=== PATIENT | female | born 1970 | race Caucasian/White ===

== ENCOUNTER 2017-02-06 09:16 | Emergency (ER) | payer SELFPAY ==
[2017-02-06 12:08] LABS: ABSOLUTE EOSINOPHILS # (AUTO) 0.1 10^3/uL (0.0-0.6); ABSOLUTE MONOCYTES (AUTO) 0.9 10^3/uL (0.1-1.4); ABSOLUTE NEUT (AUTO) 2.9 10^3/uL (1.7-8.2); BASOPHILS % (AUTO) 0.9 % (0-2); EOSINOPHILS % (AUTO) 2.7 % (0-6); HEMATOCRIT 38.5 % (36.0-47.0); HEMOGLOBIN 13.1 g/dL (12.0-15.5); HGB HCT DIFFERENCE 0.8; MEAN CORPUSCULAR HEMOGLOBIN 28.1 pg (27.0-33.4); MEAN CORPUSCULAR VOLUME 83 fl (80-97); MONOCYTES % (AUTO) 18.5 % (3-13); RED BLOOD COUNT 4.66 10^6/uL (3.72-5.28); RED CELL DISTRIBUTION WIDTH 14.1 % (11.5-14.0); SEGMENTED NEUTROPHILS % (AUTO) 57.9 % (42-78); WHITE BLOOD COUNT 4.9 10^3/uL (4.0-10.5)
[2017-02-06 12:16] LABS: APPEARANCE,URINE SLIGHTLY-CLOUDY; BILIRUBIN,URINE NEGATIVE (NEGATIVE); GLUCOSE, URINE NEGATIVE (NEGATIVE); KETONES,URINE NEGATIVE (NEGATIVE); LEUKOCYTE ESTERASE,URINE NEGATIVE (NEGATIVE); NITRITE,URINE NEGATIVE (NEGATIVE); PROTEIN,URINE NEGATIVE (NEGATIVE); URINE SPECIFIC GRAVITY 1.018; UROBILINOGEN,URINE NEGATIVE mg/dL (<2.0)
[2017-02-06 12:17] LABS: PROTHROMBIN TIME 13.7 SEC (11.4-15.4)
[2017-02-06 12:31] LABS: ALANINE AMINOTRANSFERASE 37 U/L (9-52); ALKALINE PHOSPHATASE 54 U/L (38-126); ANION GAP 13 (5-19); ASPARTATE AMINO TRANSFERASE 30 U/L (14-36); BILIRUBIN,DIRECT 0.3 mg/dL (0.0-0.4); BILIRUBIN,TOTAL 0.5 mg/dL (0.2-1.3); BLOOD UREA NITROGEN 11 mg/dL (7-20); CALCIUM 9.3 mg/dL (8.4-10.2); CARBON DIOXIDE 26 mmol/L (22-30); CHLORIDE 104 mmol/L (98-107); CREATINE KINASE 89 U/L (30-135); CREATININE RESULT 0.68 mg/dL (0.52-1.25); GLUCOSE 87 mg/dL (75-110)
[2017-02-06 12:43] LABS: CREATINE KINASE MB 0.55 ng/mL (<4.55); TROPONIN I < 0.012 ng/mL
[2017-02-06] MEDS ORDERED: AMLODIPINE BESYLATE 10 MG TABLET PO ONE (13:16)
--- NOTE | 2017-02-06 13:16 | ER Document Report ---
ED General - General Chief Complaint: Blood Pressure Problem Stated Complaint: BLOOD PRESSURE PROBLEM Time seen by provider: 13:14 Mode of Arrival: Ambulatory Information source: Patient Notes: The patient is a 46-year-old female who presents to the emergency room with cough, congestion, sinus fullness. Patient states when she feels sick, her blood pressure does elevate. She also reports that she ran out of her Norvasc. Patient denies chest pain, shortness of breath, focal weakness. TRAVEL OUTSIDE OF THE [place] IN LAST 30 DAYS: No - HPI Onset: Last week Onset/Duration: Gradual Quality of pain: Dull Severity: Mild Pain Level: Denies Associated symptoms: Chills, Nonproductive cough, Fever, Sinus pain/drainage, Other. denies: Shortness of breath Exacerbated by: Denies Relieved by: Denies - Left ear pain Similar symptoms previously: Yes Recently seen / treated by doctor: No - Related Data Allergies/Adverse Reactions: morphine [Morphine] Allergy (Intermediate, Verified 02/06/17 09:28) Dyspnea Home Medications: Current Home Medications Amlodipine Besylate [Norvasc 10 mg Tablet] 20 mg PO DAILY 02/06/17 [History] Past Medical History - General Information source: Patient - Social History Smoking Status: Never Smoker Cigarette use (# per day): No Chew tobacco use (# tins/day): No Frequency of alcohol use: None Drug Abuse: None Lives with: Family Family History: Reviewed & Not Pertinent, DM, Hypertension Patient has suicidal ideation: No Patient has homicidal ideation: No - Past Medical History Cardiac Medical History: Reports: Hx Hypertension Renal/ Medical History: Reports: Hx Peritoneal Dialysis Past Surgical History: Reports: Hx Section, Hx Cholecystectomy, Hx Tubal Ligation - Immunizations Hx Diphtheria, Pertussis, Tetanus Vaccination: Yes Review of Systems - Review of Systems Notes: Review of systems: Constitutional: Positive for chills and subjective fevers. EENT: Positive for right ear fullness and sinus congestion. Denies throat pain , throat swelling. Cardiovascular: Denies chest pain, palpitations, dyspnea or edema. Respiratory: Positive for cough. Denies wheezing, hemoptysis. Abdomen: Denies abdominal pain, nausea, vomiting, diarrhea. Denies BRBPR or melena. Genitourinary: Denies dysuria, pyuria, hematuria, flank pain. Musculoskeletal: denies joint pain or swelling, denies back pain. Neurologic: Denies headache, photophobia, neck stiffness, weakness. Denies loss of bowel or bladder function. Denies saddle anesthesia. Skin: Denies rash, lesions. Constitutional: Chills, Fever EENT: Sinus pressure, Sinus discharge Cardiovascular: No symptoms reported Respiratory: See HPI Gastrointestinal: No symptoms reported Genitourinary: No symptoms reported Female Genitourinary: No symptoms reported Musculoskeletal: No symptoms reported Skin: No symptoms reported Hematologic/Lymphatic: No symptoms reported Neurological/Psychological: No symptoms reported Physical Exam - Vital signs Vitals: Temp Pulse Resp BP Pulse Ox 98.9 F 57 L 18 160/114 H 98 02/06/17 09:24 02/06/17 09:24 02/06/17 09:24 02/06/17 09:24 02/06/17 09:24 Notes: Physical exam: GENERAL: 46-year-old female, alert and oriented 3, no acute distress. HEAD: Atraumatic, normocephalic. EYES: Pupils equal round and reactive to light, extraocular movements intact, sclera anicteric, conjunctiva are normal. ENT: TMs normal, nares patent, oropharynx clear without exudates. Moist mucous membranes. NECK: Normal range of motion, supple without lymphadenopathy or JVD. LUNGS: Breath sounds clear to auscultation bilaterally and equal. No wheezes rales or rhonchi. HEART: Regular rate and rhythm without murmurs, rubs or gallops. ABDOMEN: Soft, normoactive bowel sounds. No tenderness to palpation. No guarding, no rebound. No masses appreciated. EXTREMITIES: Normal range of motion, no pitting or edema. No clubbing or cyanosis. NEUROLOGICAL: Cranial nerves II through XII grossly intact. Normal speech, normal gait. PSYCH: Normal mood, normal affect. SKIN: Warm, Dry, normal turgor, no rashes or lesions noted. Course - Re-evaluation Re-evalutation: 02/06/17 13:16 Blood pressure without any intervention: 165/85 - Vital Signs Vital signs: Temp Pulse Resp BP Pulse Ox 100.1 F 57 L 20 188/99 H 96 02/06/17 16:01 02/06/17 09:24 02/06/17 16:01 02/06/17 16:01 02/06/17 16:01 - Laboratory Result Diagrams: 02/06/17 11:52 02/06/17 11:52 Laboratory results interpreted by me: 02/06/17 02/06/17 11:52 11:52 RDW 14.1 H Monocytes % 18.5 H Urine Blood SMALL H - Diagnostic Test Radiology reviewed: Image reviewed, Reports reviewed - Chest x-ray shows no infiltrates - EKG Interpretation by Me Rate: Normal Rhythm: NSR - EKG shows normal sinus rhythm with a ventricular rate of 54, no acute ST-T wave changes Discharge - Discharge Clinical Impression: bronchitis, hypertension Condition: Stable Disposition: HOME, SELF-CARE Instructions: Bronchitis ([facility]), High Blood Pressure ([facility]) Additional Instructions: Recommendations: Start the antibiotics tomorrow, you were given today's dose in the ER. Start the Norvasc tomorrow, you were given today's dose in the ER. Up with your primary care doctor in the next few days Return to the emergency room for any concerns he getting worse. Prescriptions: Amlodipine Besylate [Norvasc 10 mg Tablet] 10 mg PO DAILY #30 tablet Azithromycin [Zithromax 250 mg Tablet] 250 mg PO ASDIR PRN #6 tablet PRN Reason: Forms: Return to Work Referrals: OFELIA LUNDBERG NP [Primary Care Provider] - Follow up in 3-5 days
--- NOTE | 2017-02-06 13:37 | EKG REPORT ---
SEVERITY:- BORDERLINE ECG - SINUS RHYTHM LVH BY VOLTAGE : Confirmed by: Sunil Truong MD 06-Feb-2017 13:36:23
[2017-02-06] MEDS ORDERED: AZITHROMYCIN 250 MG TABLET PO ONE (16:07)
[2017-02-06 16:26] VITALS: BP 188/99
== END 2017-02-06 16:34 | disposition home or self-care (01) ==
LOC: ER 09:16
DX: J40 Bronchitis, not specified as acute or chronic (principal); I10 Essential (primary) hypertension; R05 Cough; R09.81 Nasal congestion; Z79.899 Other long term (current) drug therapy
CPT/HCPCS: 36415; 71020; 80053; 81001; 82550; 82553; 84484; 85025; 85610; 93005; 93010; 99284

== ENCOUNTER 2017-04-13 11:10 | Emergency (ER) | payer SELFPAY ==
[2017-04-13] MEDS ORDERED: CLONIDINE HCL 0.2 MG TABLET PO ONE (11:49)
--- NOTE | 2017-04-13 11:57 | ER Document Report ---
ED Medical Screen (RME) - General Chief Complaint: Headache Stated Complaint: HEADACHE Time Seen by Provider: 04/13/17 11:49 Notes: Patient says her blood pressure is very high today. She has a history of high blood pressure and is on metoprolol and lisinopril and is supposed to be on a couple of other medicines, but is out of them. She is nauseated she has a headache this morning. She gets this way when her blood pressures up. She has been under a lot of stress for the past few days. TRAVEL OUTSIDE OF THE [place] IN LAST 30 DAYS: No - Related Data Allergies/Adverse Reactions: morphine [Morphine] Allergy (Intermediate, Verified 04/13/17 11:36) Dyspnea Past Medical History - Past Medical History Cardiac Medical History: Reports: Hx Hypertension Renal/ Medical History: Denies: Hx Peritoneal Dialysis Past Surgical History: Reports: Hx Section, Hx Cholecystectomy, Hx Tubal Ligation - Immunizations Hx Diphtheria, Pertussis, Tetanus Vaccination: Yes Physical Exam - Vital signs Vitals: Temp Pulse Resp BP Pulse Ox 98.2 F 48 L 16 225/117 H 99 04/13/17 11:15 04/13/17 11:15 04/13/17 11:15 04/13/17 11:15 04/13/17 11:15 Course - Vital Signs Vital signs: Temp Pulse Resp BP Pulse Ox 98.2 F 48 L 16 225/117 H 99 04/13/17 11:15 04/13/17 11:15 04/13/17 11:15 04/13/17 11:15 04/13/17 11:15
[2017-04-13 12:55] LABS: ABSOLUTE BASOPHILS # (AUTO) 0.1 10^3/uL (0.0-0.2); ABSOLUTE EOSINOPHILS # (AUTO) 0.1 10^3/uL (0.0-0.6); ABSOLUTE LYMPHOCYTES (AUTO) 2.2 10^3/uL (0.5-4.7); ABSOLUTE MONOCYTES (AUTO) 0.4 10^3/uL (0.1-1.4); ABSOLUTE NEUT (AUTO) 4.1 10^3/uL (1.7-8.2); BASOPHILS % (AUTO) 0.9 % (0-2); EOSINOPHILS % (AUTO) 1.5 % (0-6); HEMATOCRIT 39.4 % (36.0-47.0); HEMOGLOBIN 13.2 g/dL (12.0-15.5); HGB HCT DIFFERENCE 0.2; MEAN CORPUSCULAR HEMOGLOBIN 27.7 pg (27.0-33.4); MEAN CORPUSCULAR HGB CONC 33.5 g/dL (32.0-36.0); MEAN CORPUSCULAR VOLUME 82 fl (80-97); MONOCYTES % (AUTO) 6.4 % (3-13); RED BLOOD COUNT 4.78 10^6/uL (3.72-5.28); RED CELL DISTRIBUTION WIDTH 13.4 % (11.5-14.0); SEGMENTED NEUTROPHILS % (AUTO) 59.2 % (42-78); WHITE BLOOD COUNT 6.9 10^3/uL (4.0-10.5)
[2017-04-13 12:57] LABS: APPEARANCE,URINE SLIGHTLY-CLOUDY; BILIRUBIN,URINE NEGATIVE (NEGATIVE); GLUCOSE, URINE NEGATIVE (NEGATIVE); KETONES,URINE NEGATIVE (NEGATIVE); LEUKOCYTE ESTERASE,URINE NEGATIVE (NEGATIVE); NITRITE,URINE NEGATIVE (NEGATIVE); PROTEIN,URINE 30 mg/dL (NEGATIVE); URINE SPECIFIC GRAVITY 1.024; UROBILINOGEN,URINE NEGATIVE mg/dL (<2.0)
[2017-04-13 13:11] LABS: ALANINE AMINOTRANSFERASE 30 U/L (9-52); ALKALINE PHOSPHATASE 53 U/L (38-126); ANION GAP 11 (5-19); ASPARTATE AMINO TRANSFERASE 20 U/L (14-36); BILIRUBIN,DIRECT 0.4 mg/dL (0.0-0.4); BILIRUBIN,TOTAL 0.7 mg/dL (0.2-1.3); BLOOD UREA NITROGEN 14 mg/dL (7-20); CALCIUM 9.9 mg/dL (8.4-10.2); CARBON DIOXIDE 26 mmol/L (22-30); CHLORIDE 104 mmol/L (98-107); CREATININE RESULT 0.74 mg/dL (0.52-1.25); GLUCOSE 90 mg/dL (75-110); POTASSIUM 3.9 mmol/L (3.6-5.0); SODIUM 141.1 mmol/L (137-145); TOTAL PROTEIN 7.9 g/dL (6.3-8.2)
[2017-04-13 13:36] LABS: CREATINE KINASE MB 0.61 ng/mL (<4.55); TROPONIN I < 0.012 ng/mL
[2017-04-13] MEDS ORDERED: HYDRALAZINE HCL INJ/PF 20 MG/1 ML SDV IV ONE (14:55)
[2017-04-13] MEDS ORDERED: PROCHLORPERAZINE EDISYLATE INJ 10 MG/2 ML VIAL IV ONE (14:55)
[2017-04-13] MEDS ORDERED: DIPHENHYDRAMINE HCL 50 MG/ML VIAL IV ONE (14:55)
--- NOTE | 2017-04-13 15:08 | ER Document Report ---
ED General - General TRAVEL OUTSIDE OF THE [place] IN LAST 30 DAYS: No <NAM MUNOZ - Last Filed: 04/13/17 15:31> <SHAHIDA OVERTON - Last Filed: 04/13/17 22:43> - General Chief Complaint: Headache Stated Complaint: HEADACHE Time Seen by Provider: 04/13/17 11:49 - HPI Notes: 46-year-old female with a history of malignant hypertension who presents the emergency department complaining of a severe frontal headache that started this morning. States that she always gets headaches like this when her blood pressure is elevated however today she had new features of twinkling kaleidoscope type lights in her eyes as well as smelling sulfur for the past several days. Headache is described as severe. Patient is out of her hydralazine and her spironolactone. Also out of her anxiety medication whose name she cannot remember but examination of the records reveals to be lorazepam. She has been out of all of these medications for at least a month. Admits mild nausea but denies any vomiting, numbness, tingling, weakness. Denies any other symptoms. Any head injury, denies taking any blood thinners. (SHAHIDA OVERTON) - Related Data Allergies/Adverse Reactions: morphine [Morphine] Allergy (Intermediate, Verified 04/13/17 11:36) Dyspnea Past Medical History - Social History Family History: Reviewed & Not Pertinent, DM, Hypertension - Past Medical History Cardiac Medical History: Reports: Hx Hypertension Renal/ Medical History: Denies: Hx Peritoneal Dialysis Past Surgical History: Reports: Hx Section, Hx Cholecystectomy, Hx Tubal Ligation - Immunizations Hx Diphtheria, Pertussis, Tetanus Vaccination: Yes <NAM MUNOZ - Last Filed: 04/13/17 15:31> - General Information source: Patient - Social History Smoking Status: Never Smoker Cigarette use (# per day): No Chew tobacco use (# tins/day): No Frequency of alcohol use: None Drug Abuse: None Family History: DM, Hypertension <SHAHIDA OVERTON - Last Filed: 04/13/17 22:43> Review of Systems - Review of Systems Constitutional: No symptoms reported EENT: See HPI Cardiovascular: See HPI - Hypertension Neurological/Psychological: See HPI - headache, flashing lights, Headaches -: Yes All other systems reviewed and negative <SHAHIDA OVERTON - Last Filed: 04/13/17 22:43> Physical Exam <NAM MUNOZ - Last Filed: 04/13/17 15:31> - Vital signs Interpretation: Hypertensive, Bradycardic <SHAHIDA OVERTON - Last Filed: 04/13/17 22:43> - Vital signs Vitals: Temp Pulse Resp BP Pulse Ox 98.2 F 48 L 16 225/117 H 99 04/13/17 11:15 04/13/17 11:15 04/13/17 11:15 04/13/17 11:15 04/13/17 11:15 - Notes Notes: GENERAL: Alert, interacts well. No acute distress. HEAD: Normocephalic, atraumatic EYES: Pupils equal, round and reactive to light, extraocular movements intact. ENT: Oral mucosa moist, tongue midline. NECK: Full range of motion, supple, trachea midline. LUNGS: Clear to auscultation bilaterally, no wheezes, rales or rhonchi, no respiratory distress. HEART: Regular rate and rhythm, no murmurs, gallops, rubs. ABDOMEN: Soft, nontender, nondistended, bowel sounds present in all 4 quadrants. EXTREMITIES: Moves all 4 extremities spontaneously, no edema, radial and dorsalis pedis pulses 2/4 bilaterally. No cyanosis. NEUROLOGICAL: Alert and oriented x3, normal speech, facial droop, biceps and patellar DTRs 2+ bilaterally. PSYCH: Normal mood, normal affect. SKIN: Warm, Dry, normal turgor, no rashes or lesions noted. (SHAHIDA OVERTON) Course - Laboratory Result Diagrams: 04/13/17 12:35 04/13/17 12:35 - Consults Dr. Hill Time consulted: 14:51 <NAM MUNOZ - Last Filed: 04/13/17 15:31> - Laboratory Result Diagrams: 04/13/17 12:35 04/13/17 12:35 <SHAHIDA OVERTON - Last Filed: 04/13/17 22:43> - Re-evaluation Re-evalutation: 04/13/17 17:24 CBC unremarkable, CMP unremarkable, urinalysis unremarkable, CT scan of the head shows no acute bleed, lumbar puncture was then performed under fluoroscopy which showed 1 WBC and 5 RBCs, 57 glucose and 32 of protein. This is not consistent with subarachnoid hemorrhage, it is clear and colorless, there is no xanthochromia. Patient does not have subarachnoid hemorrhage, patient will be treated for her hypertension, she has already had a reduction of 20%, patient will have her outpatient blood pressure medications represcribed with the exception of Ativan which she has been out of for greater than a month. Patient 's headache is improving even just with blood pressure reduction from the clonidine in triage. (SHAHIDA OVERTON) - Vital Signs Vital signs: Temp Pulse Resp BP Pulse Ox 97.4 F 49 L 13 179/89 H 98 04/13/17 17:38 04/13/17 17:38 04/13/17 17:38 04/13/17 17:38 04/13/17 17:38 - Laboratory Laboratory results interpreted by me: 04/13/17 12:35 Urine Protein 30 H - EKG Interpretation by Me Additional EKG results interpreted by me: 04/13/17 17:26 EKG shows sinus bradycardia at a rate of 49, slight left axis deviation, left ventricular hypertrophy, no ST segment elevations or depressions, there are T- wave inversions noted in V5, V6 and aVL per my interpretation. (SHAHIDA OVERTON) - Consults Dr. Hill Reason for consultation: 04/13/17 15:31 Consulted about possible need for X-Ray- guided LP. Dr. Hill agrees and states to put the order in if necessary. (NAM MUNOZ) Discharge <NAM MUNOZ - Last Filed: 04/13/17 15:31> <SHAHIDA OVERTON - Last Filed: 04/13/17 22:43> - Discharge Clinical Impression: Poorly-controlled hypertension Hypertension Qualifiers: Hypertension type: essential hypertension Qualified Code(s): I10 - Essential ( primary) hypertension Headache Qualifiers: Headache type: unspecified Headache chronicity pattern: acute headache Intractability: not intractable Qualified Code(s): R51 - Headache Obesity (BMI 30-39.9) Qualifiers: Obesity type: due to excess calories Obesity severity: non-morbid Qualified Code(s): E66.09 - Other obesity due to excess calories Condition: Stable Disposition: HOME, SELF-CARE Instructions: Post Lumbar Puncture ([facility]), High Blood Pressure, Requiring Treatment ([facility]) Prescriptions: Hydralazine HCl 25 mg PO DAILY #30 tablet Spironolactone [Aldactone 25 mg Tablet] 25 mg PO DAILY #30 tablet Referrals: MANUELA GALLARDO MD [ACTIVE STAFF] - Follow up in 1 week Scribe Attestation: 04/13/17 22:42 I personally performed the services described in the documentation, reviewed and edited the documentation which was dictated to the scribe in my presence, and it accurately records my words and actions. (SHAHIDA OVERTON) Scribe Documentation - Scribe Written by Nighat:: Nighat Muñiz, 04/13/2017 1507 acting as scribe for :: De <NAM MUNOZ - Last Filed: 04/13/17 15:31>
--- NOTE | 2017-04-13 15:18 | RADIOLOGY REPORT (SQ) ---
EXAM DESCRIPTION: CT HEAD WITHOUT COMPLETED DATE/TIME: 04/13/2017 3:09 pm REASON FOR STUDY: HTN SBP 225, r/o SAH COMPARISON: CT brain 03/14/2015, 10/19/2015 TECHNIQUE: Axial images acquired through the brain without intravenous contrast. Images reviewed wi th bone, brain and subdural windows. Images stored on PACS. All CT scanners at this facility use dose modulation, iterative reconstruction, and/or weight based d osing when appropriate to reduce radiation dose to as low as reasonably achievable (ALARA). [facility]: Dose Right [facility]: CareDose [facility]: Dose Right [facility]: Teradose 4D [facility]: [employer] RADIATION DOSE: mGy. LIMITATIONS: None. FINDINGS: VENTRICLES: Normal size and contour. CEREBRUM: No masses. No hemorrhage. No midline shift. Normal barraza/white matter differentiation. N o evidence for acute infarction. CEREBELLUM: No masses. No hemorrhage. No alteration of density. No evidence for acute infarction. EXTRAAXIAL SPACES: No fluid collections. No masses. ORBITS AND GLOBE: No intra- or extraconal masses. Normal contour of globe without masses. CALVARIUM: No fracture. PARANASAL SINUSES: No fluid or mucosal thickening. SOFT TISSUES: Benign-appearing chronic right parietal scalp calcification axial image 27 unchanged si nce 2014. OTHER: No other significant finding. IMPRESSION: NORMAL BRAIN CT WITHOUT CONTRAST. TECHNICAL DOCUMENTATION: JOB ID: [id number] Quality ID # [id number]: Final reports with documentation of one or more dose reduction techniques (e.g., Au tomated exposure control, adjustment of the mA and/or kV according to patient size, use of iterative reconstruction technique) 2010 [employer]- All Rights Reserved
--- NOTE | 2017-04-13 16:03 | RADIOLOGY REPORT (SQ) ---
EXAM DESCRIPTION: LUMBAR PUNCTURE COMPLETED DATE/TIME: 04/13/2017 3:49 pm REASON FOR STUDY: michi JAIME with SBP 225 mmhg COMPARISON: None. FLUOROSCOPY TIME: 0.3 minutes 2 digital images saved to PACS. TECHNIQUE: Fluoroscopic guided lumbar puncture. LIMITATIONS: None. PROCEDURE: After written consent and assessment were obtained, the patient was brought into the fluo roscopy room and placed prone on the table. The patient's lower back was prepped in a sterile fashio n and an entry site was selected under live fluoroscopic guidance. The entry site was anesthetized wi th 3 mL of 1% lidocaine. A 22 gauge spinal needle was advanced through the skin and into the thecal s ac at the right paracentral L3-4 level. After approximately 9 ml was drained, the needle was removed and a sterile bandage was placed of the site. Specimens were sent to the lab for testing. A fluoros copic spot image was saved to PACS confirming level access. FINDINGS: Clear cerebrospinal fluid, opening pressure 10 cm of water. Fluid sent for testing as per the emergency room attending physician IMPRESSION: Lumbar puncture under fluoroscopy. No immediate complication. COMMENT: Patient medication list reviewed: Yes- Quality ID# [id number]:Eligible professional attests to doc umenting in the medical record they obtained, updated, or reviewed the patient's current medications. . Quality ID 145: Final reports for procedures using fluoroscopy that document radiation exposure treva shruti, or exposure time and number of fluorographic images (if radiation exposure indices are not avail able) TECHNICAL DOCUMENTATION: JOB ID: [id number] [employer]- All Rights Reserved
--- NOTE | 2017-04-13 16:10 | RADIOLOGY REPORT (SQ) ---
EXAM DESCRIPTION: FLUORO/NEEDLE PLACEMENT COMPLETE DATE/TIME: 04/13/2017 3:49 pm REASON FOR STUDY: newonset JAIME with SBP 225 mmhg FINDINGS: Please see combined report for performance of procedure and radiologic supervision and int erpretation. IMPRESSION: Please see combined report for performance of procedure and radiologic supervision and i nterpretation.
[2017-04-13 16:36] LABS: GLUCOSE,CSF 57 mg/dL (40-70)
[2017-04-13] MEDS ORDERED: HYDRALAZINE HCL 50 MG TABLET PO ONE (16:42)
[2017-04-13] MEDS ORDERED: METOCLOPRAMIDE HCL INJ/PF 10 MG/2 ML SDV IM ONE (16:42)
[2017-04-13] MEDS ORDERED: DIPHENHYDRAMINE HCL 50 MG/ML VIAL IM ONE (16:42)
[2017-04-13 16:53] LABS: APPEARANCE ALL TUBES CLEAR
[2017-04-13 16:54] LABS: RBC AVERAGE 4.5; RBC DILUENT USED NONE USED; RBC DILUTION FACTOR 1; RBC SIDE 1 4; RBC SIDE 2 5; TOTAL RBC SQUARES COUNTED 225; WHITE BLOOD CELL,CSF 1 /uL (0-5)
[2017-04-13 16:55] LABS: APPEARANCE ALL TUBES CLEAR; RBC DILUENT USED NONE USED; RBC DILUTION FACTOR 1; RBC SIDE 1 1; RBC SIDE 2 1; TOTAL RBC SQUARES COUNTED 225
[2017-04-13 16:56] LABS: WHITE BLOOD CELL,CSF 0 /uL (0-5)
[2017-04-13 17:43] VITALS: BP 179/89
--- NOTE | 2017-04-13 18:29 | EKG REPORT ---
SEVERITY:- ABNORMAL ECG - SINUS BRADYCARDIA LEFT VENTRICULAR HYPERTROPHY : Confirmed by: Sunil Truong MD 13-Apr-2017 18:28:36
== END 2017-04-13 17:52 | disposition home or self-care (01) ==
LOC: ER 11:10
PROC: 009U3ZX Drainage of Spinal Canal, Percutaneous Approach, Diagnostic (ICD-10-PCS; principal; 2017-04-13)
DX: I10 Essential (primary) hypertension (principal); T46.5X6A Underdosing of other antihypertensive drugs, initial encounter; T50.0X6A Underdosing of mineralocorticoids and their antagonists, initial encounter; F41.9 Anxiety disorder, unspecified; T42.4X6A Underdosing of benzodiazepines, initial encounter; H53.8 Other visual disturbances; R51 Headache; R29.810 Facial weakness; R43.8 Other disturbances of smell and taste; R11.0 Nausea; R00.1 Bradycardia, unspecified; I51.7 Cardiomegaly; E66.9 Obesity, unspecified; Z68.39 Body mass index [BMI] 39.0-39.9, adult; Z88.5 Allergy status to narcotic agent
CPT/HCPCS: 93005; 99284; 96372; 36415; 87070; 87205; 82553; 85025; 89050; 82945; 84157; 80053; 81001; 84484; 77002; 62270 ×2; 70450; 93010; J1200; J2765

== ENCOUNTER 2017-04-20 15:57 | Observation (INO) | payer SELFPAY ==
[2017-04-20] MEDS ORDERED: OXYCODONE-ACETAMINOPHEN 5-325 MG TABLET PO ONE (17:41)
[2017-04-20] MEDS ORDERED: AMLODIPINE BESYLATE 10 MG TABLET PO ONE (17:43)
--- NOTE | 2017-04-20 17:46 | ER Document Report ---
ED Blood Pressure Problem - General Chief Complaint: High Blood Pressure Stated Complaint: BLOOD PRESSURE ISSUES Time Seen by Provider: 04/20/17 17:33 Mode of Arrival: Ambulatory Information source: Patient Notes: This is a 46-year-old female with poorly controlled blood pressure presents to the emergency room with headache in the setting of elevated blood pressure. Patient states her blood pressure was 248/131. She states she has had a headache all day. She denies any fever, chills, nausea or vomiting. She denies any focal motor weakness. TRAVEL OUTSIDE OF THE [place] IN LAST 30 DAYS: No - HPI Patient complains to provider of: High blood pressure Onset: Last week Onset/Duration: Gradual Quality of pain: Dull Severity: Moderate Pain Level: 3 Problem is: Chronic problem Pt currently taking medication for problem: Yes Associated symptoms: Headache, Nausea Similar symptoms previously: Yes Recently seen / treated by doctor: Yes - Related Data Allergies/Adverse Reactions: morphine [Morphine] Allergy (Intermediate, Verified 04/20/17 16:18) Dyspnea Past Medical History - General Information source: Patient - Social History Smoking Status: Never Smoker Chew tobacco use (# tins/day): No Frequency of alcohol use: None Drug Abuse: None Lives with: Spouse/Significant other Family History: DM, Hypertension Patient has suicidal ideation: No Patient has homicidal ideation: No - Past Medical History Cardiac Medical History: Reports: Hx Hypertension Renal/ Medical History: Denies: Hx Peritoneal Dialysis Past Surgical History: Reports: Hx Section, Hx Cholecystectomy, Hx Tubal Ligation - Immunizations Hx Diphtheria, Pertussis, Tetanus Vaccination: Yes Review of Systems - Review of Systems Constitutional: denies: Chills, Fever EENT: No symptoms reported Cardiovascular: See HPI. denies: Chest pain Respiratory: No symptoms reported Gastrointestinal: No symptoms reported Genitourinary: No symptoms reported Female Genitourinary: No symptoms reported Musculoskeletal: No symptoms reported Skin: No symptoms reported Hematologic/Lymphatic: No symptoms reported Neurological/Psychological: Anxiety, Headaches. denies: Confusion, Weakness, Seizure, Numbness, Tingling Physical Exam - Vital signs Vitals: Temp Pulse Resp BP Pulse Ox 98.3 F 51 L 18 220/118 H 100 04/20/17 16:18 04/20/17 16:18 04/20/17 16:18 04/20/17 16:18 04/20/17 16:18 Notes: Physical exam: GENERAL: 46-year-old female, alert and oriented 3, no acute distress. HEAD: Atraumatic, normocephalic. EYES: Pupils equal round and reactive to light, extraocular movements intact, sclera anicteric, conjunctiva are normal. ENT: TMs normal, nares patent, oropharynx clear without exudates. Moist mucous membranes. NECK: Normal range of motion, supple without lymphadenopathy or JVD. LUNGS: Breath sounds clear to auscultation bilaterally and equal. No wheezes rales or rhonchi. HEART: Regular rate and rhythm without murmurs, rubs or gallops. ABDOMEN: Soft, normoactive bowel sounds. No tenderness to palpation. No guarding, no rebound. No masses appreciated. EXTREMITIES: Normal range of motion, no pitting or edema. No clubbing or cyanosis. NEUROLOGICAL: Cranial nerves II through XII grossly intact. Normal speech, otherwise 5, sensory grossly intact, cerebellar (finger to nose) good. PSYCH: Normal mood, normal affect. SKIN: Warm, Dry, normal turgor, no rashes or lesions noted. Course - Vital Signs Vital signs: Temp Pulse Resp BP Pulse Ox 98.3 F 51 L 18 201/100 H 97 04/20/17 16:18 04/20/17 16:18 04/20/17 18:54 04/20/17 18:54 04/20/17 18:54 - Laboratory Result Diagrams: 04/20/17 16:45 04/20/17 16:45 Laboratory results interpreted by me: 04/20/17 16:45 Sodium 145.7 H - Diagnostic Test Radiology reviewed: Image reviewed, Reports reviewed - CT of the head shows no acute pathology. - EKG Interpretation by Me Rate: Bradycardia Rhythm: NSR - EKG shows sinus bradycardia with no acute ST-T wave elevation, ventricular rate 51. Critical Care Note - Critical Care Note Total time excluding time spent on procedures (mins): 55 Discharge - Discharge Clinical Impression: Hypertensive emergency, Headache Condition: Serious Disposition: ADMITTED INPATIENT Admitting Provider: Hospitalist - Dr Fuller Unit Admitted: [facility]
[2017-04-20 17:50] LABS: ABSOLUTE BASOPHILS # (AUTO) 0.1 10^3/uL (0.0-0.2); ABSOLUTE EOSINOPHILS # (AUTO) 0.1 10^3/uL (0.0-0.6); ABSOLUTE LYMPHOCYTES (AUTO) 2.8 10^3/uL (0.5-4.7); ABSOLUTE MONOCYTES (AUTO) 0.5 10^3/uL (0.1-1.4); ABSOLUTE NEUT (AUTO) 3.6 10^3/uL (1.7-8.2); BASOPHILS % (AUTO) 0.7 % (0-2); EOSINOPHILS % (AUTO) 1.8 % (0-6); HEMATOCRIT 41.2 % (36.0-47.0); HEMOGLOBIN 13.8 g/dL (12.0-15.5); HGB HCT DIFFERENCE 0.2; LYMPHOCYTES % (AUTO) 39.6 % (13-45); MEAN CORPUSCULAR HEMOGLOBIN 27.6 pg (27.0-33.4); MEAN CORPUSCULAR HGB CONC 33.4 g/dL (32.0-36.0); MEAN CORPUSCULAR VOLUME 83 fl (80-97); MONOCYTES % (AUTO) 6.8 % (3-13); RED BLOOD COUNT 4.98 10^6/uL (3.72-5.28); RED CELL DISTRIBUTION WIDTH 13.6 % (11.5-14.0); SEGMENTED NEUTROPHILS % (AUTO) 51.1 % (42-78); WHITE BLOOD COUNT 7.1 10^3/uL (4.0-10.5)
[2017-04-20 18:00] LABS: ALANINE AMINOTRANSFERASE 31 U/L (9-52); ALBUMIN 4.1 g/dL (3.5-5.0); ALKALINE PHOSPHATASE 59 U/L (38-126); ANION GAP 14 (5-19); ASPARTATE AMINO TRANSFERASE 21 U/L (14-36); BILIRUBIN,DIRECT 0.3 mg/dL (0.0-0.4); BILIRUBIN,TOTAL 0.4 mg/dL (0.2-1.3); BLOOD UREA NITROGEN 17 mg/dL (7-20); CALCIUM 10.1 mg/dL (8.4-10.2); CARBON DIOXIDE 26 mmol/L (22-30); CHLORIDE 106 mmol/L (98-107); CREATINE KINASE 105 U/L (30-135); CREATININE RESULT 0.77 mg/dL (0.52-1.25); GLUCOSE 93 mg/dL (75-110); POTASSIUM 3.9 mmol/L (3.6-5.0); SODIUM 145.7 mmol/L (137-145); TOTAL PROTEIN 8.2 g/dL (6.3-8.2)
[2017-04-20 18:12] LABS: CREATINE KINASE MB 0.92 ng/mL (<4.55); TROPONIN I < 0.012 ng/mL
--- NOTE | 2017-04-20 18:58 | RADIOLOGY REPORT (SQ) ---
EXAM DESCRIPTION: CT HEAD WITHOUT COMPLETED DATE/TIME: 04/20/2017 6:42 pm REASON FOR STUDY: uncontrolled bp COMPARISON: 04/13/2017 TECHNIQUE: Axial images acquired through the brain without intravenous contrast. Images reviewed wi th bone, brain and subdural windows. Images stored on PACS. All CT scanners at this facility use dose modulation, iterative reconstruction, and/or weight based d osing when appropriate to reduce radiation dose to as low as reasonably achievable (ALARA). [facility]: Dose Right [facility]: CareDose [facility]: Dose Right [facility]: Teradose 4D [facility]: [email or web address] RADIATION DOSE: 64.61 mGy. LIMITATIONS: None. FINDINGS: VENTRICLES: Normal size and contour. CEREBRUM: No masses. No hemorrhage. No midline shift. Normal barraza/white matter differentiation. N o evidence for acute infarction. CEREBELLUM: No masses. No hemorrhage. No alteration of density. No evidence for acute infarction. EXTRAAXIAL SPACES: No fluid collections. No masses. ORBITS AND GLOBE: No intra- or extraconal masses. Normal contour of globe without masses. CALVARIUM: No fracture. PARANASAL SINUSES: Small mucosal polyp or retention cyst is identified in the left maxillary antra. SOFT TISSUES: The previously described right parietal scalp calcification appears stable. OTHER: No other significant finding. IMPRESSION: NORMAL BRAIN CT WITHOUT CONTRAST. TECHNICAL DOCUMENTATION: JOB ID: [id number] Quality ID # [id number]: Final reports with documentation of one or more dose reduction techniques (e.g., Au tomated exposure control, adjustment of the mA and/or kV according to patient size, use of iterative reconstruction technique) 2010 [employer]- All Rights Reserved
--- NOTE | 2017-04-20 18:59 | RADIOLOGY REPORT (SQ) ---
EXAM DESCRIPTION: CHEST SINGLE VIEW COMPLETED DATE/TIME: 04/20/2017 6:44 pm REASON FOR STUDY: uncontrolled bp COMPARISON: 02/06/2017 EXAM PARAMETERS: NUMBER OF VIEWS: One view. TECHNIQUE: Single frontal radiographic view of the chest acquired. RADIATION DOSE: NA LIMITATIONS: None. FINDINGS: LUNGS AND PLEURA: No opacities, masses or pneumothorax. No pleural effusion. MEDIASTINUM AND HILAR STRUCTURES: No masses. Contour normal. HEART AND VASCULAR STRUCTURES: Heart normal in size. Normal vasculature. BONES: No acute findings. HARDWARE: None in the chest. OTHER: No other significant finding. IMPRESSION: NO ACUTE RADIOGRAPHIC FINDING IN THE CHEST. TECHNICAL DOCUMENTATION: JOB ID: [id number]
[2017-04-20] MEDS ORDERED: METOCLOPRAMIDE HCL INJ/PF 10 MG/2 ML SDV IV ONE (19:45)
[2017-04-20] MEDS ORDERED: DIPHENHYDRAMINE HCL 50 MG/ML VIAL IV ONE (19:49)
[2017-04-20] MEDS ORDERED: ALPRAZOLAM 0.5 MG TABLET PO ONE (20:01)
[2017-04-20] MEDS ORDERED: HYDRALAZINE HCL INJ/PF 20 MG/1 ML SDV IV PRN (21:53)
[2017-04-20] MEDS ORDERED: MAGNESIUM HYDROXIDE SUSP 30 ML UDCUP PO PRN (21:59)
--- NOTE | 2017-04-20 22:26 | PDOC H&P ---
History of Present Illness Admission Date/PCP: 04/20/17 20:31 PCP None Patient complains of: headache, elev bp History of Present Illness: RACHEL SCHOFIELD is a 46 year old female with chronic headaches and chronic poorly controlled hypertension, who presents to the emergency room for evaluation of above complaints. Patient has been discussed with emergency room physician who evaluated the patient. Describes a recurrence of her usual chronic headaches earlier today. States this is usually the case when her blood pressure is higher than it should be. Describes nausea but no vomiting. No chest or abdominal pain, fever or chills. Denies any lateralizing motor weakness. Was seen in the emergency room the last for complaints of severe frontal headache. At that time, she had run out of both her Spironolactone and hydralazine, but was still taking her metoprolol and lisinopril. given prescriptions for the 2 remaining antihypertensives, and states she has since been taking her medications as prescribed. Denies use of alcohol tobacco or illicit drugs. Currently resting quietly, stating her headache is a bit better. Hospitalized on our service the through 25 June of last year with discharge diagnoses including malignant hypertension and migraines. At that time, was not completely compliant with all her medications, but states that is no longer the case. Discharge summary has been reviewed. Laboratory results are listed in [employer] and are reviewed. X-ray summary results are listed below, with full report(s) reviewed. . EKG reviewed and compared to a prior tracing from the last . Social history/personal habits: . Has children. cook at a local restaurant. Personal habits as noted above. Allergies/adverse reactions are listed in [employer] and are reviewed. No problems with Percocet or Vicodin. Home medications initially autopopulated into [employer] may not accurately reflect patient's true medications, dosages, and/or frequencies. radiographer technologist has reconciled medications; medication bottle review also performed. Unfortunately, patient not certain of all medications/dosages/frequencies. REVIEW OF SYSTEMS: Constitutional: No fever or chills. Eyes: Wears glasses ENT: No swallowing problems or complaints. Denies hearing loss. Pulmonary: No current complaints. Cardiovascular: No current complaints, including chest pain. Gastrointestinal: See history and present illness. Skin: No current complaints, including rashes. Hematologic: Easy bruising. Neurologic: See history and present illness. Musculoskeletal: Mild occasional joint pains, without a specific diagnosis of arthritis Psychiatric: Mild occasional anxiety. Endocrine: No current complaints, including polyuria. Genitourinary: No current complaints, including dysuria. PHYSICAL EXAMINATION: 5 feet 1 inches tall. 92.9 kg. BMI 38.7 kg/m. Temperature 98.3. Manual blood pressure 232/116 on the left; 214/112 on the right. Pulse 54 and regular. 98% saturation on room air. Respirations are 21 and unlabored. Obese otherwise well-developed female appearing approximately her stated age. Pleasant awake alert and cooperative. No obvious distress other than somewhat anxious. No agitation. is present at her side; patient approves. Female emergency room nurse Kathe is present. Skin is warm and dry. No grossly obvious evidence of rash in areas of skin examined. No subcutaneous nodules palpated. ENT: Hearing grossly normal to normal conversation. Tongue midline on protrusion pink and slightly moist. Eyes: No scleral icterus. Pupils equal and reactive to light at 4 mm. [place] conjunctivae. Neck is supple and nontender to gentle active range of motion and palpation. Midline trachea. No palpable thyroid nodule mass enlargement or tenderness. Lymphatic: No palpable cervical or clavicular nodes. Neck and lymphatic exams limited by patient body habitus. Psychiatric: Reasonable insight into acute and chronic medical issues. Oriented to time location and why here. Lungs: Auscultation reveals clear and equal breath sounds bilaterally. No use of accessory respiratory muscles. Cardiovascular: Heart regular rate and rhythm, without gallop murmur or rub. No carotid or abdominal aortic bruits. No ankle or pedal edema. Faintly palpable dorsalis pedis pulses. Abdomen:soft somewhat obese nontender with positive bowel sounds. Unable to adequately evaluate abdomen for masses or organomegaly due to body habitus. Extremities: Feet are warm and dry. No calf tenderness to compression. No grossly obvious visual evidence of calf swelling. Gentle manipulation of lower extremities fails to reveal any obvious evidence of injury or instability to knees hips or ankles. Neurologic: Moves all 4 extremities grossly normally. Patellar reflexes absent. Absent Babinski. Light touch is intact at feet. Dorsiflexion and plantarflexion of feet 5 / 5 and symmetric. Past Medical History Cardiac Medical History: Reports: Hypertension Denies: Congestive Heart Failure, DVT, Myocardial Infarction, Hyperlipidema, Pulmonary Embolism Pulmonary Medical History: Denies: Asthma, Chronic Obstructive Pulmonary Disease (COPD), Sleep Apnea EENT Medical History: Reports: Eyes - Glasses, Other - Occasional problems with dental infections. Denies: Ears, Throat Neurological Medical History: Reports: Migraine Denies: Hemorrhagic CVA, Ischemic CVA, Seizures Endocrine Medical History: Denies: Diabetes Mellitus Type 1, Diabetes Mellitus Type 2, Hyperthyroidism, Hypothyroidism Renal/ Medical History: Reports: None GI Medical History: Reports: Other - Chronic constipation Denies: Cirrhosis, Gastroesophageal Reflux Disease, Hepatitis, Peptic Ulcer Disease Musculoskeltal Medical History: Reports: Other - Occasional mild joint pains, without formal diagnosis of arthritis. Skin Medical History: Reports: Other - Occasional problems with rosacea. Psychiatric Medical History: Reports: General Anxiety Disorder Denies: Alcohol Dependency, Depression, Substance Abuse, Tobacco Dependency Hematology: Reports: Other - Easy bruising Infectious Medical History: Denies: Clostridium Difficile, Hepatitis B, Hepatitis C, Methicillin- Resistant Staph Aureus Past Surgical History Past Surgical History: Reports: Section, Cholecystectomy, Tubal Ligation Social History Information Source: Patient, Emergency Med Personnel, [facility] Records Lives with: Spouse/Significant other Smoking Status: Never Smoker Frequency of Alcohol Use: None Hx Recreational Drug Use: No Drugs: None Hx Prescription Drug Abuse: No - Advance Directive Resuscitation Status: Full Code Surrogate healthcare decision maker:: Family History Family History: DM, Hypertension Parental Family History Reviewed: Yes - Parents are hypertensive. Children Family History Reviewed: Yes - Daughter with Crohn's disease. Sibling(s) Family History Reviewed.: Yes - Healthy Medication/Allergy Home Medications: Ibuprofen [Motrin 400 mg Tablet] 400 mg PO Q12HP PRN 04/21/17 Amoxicillin 1 tab PO TID #30 tab 04/22/17 Butalb/Acetaminophen/Caffeine [Fioricet (50-325-40 mg) Tablet] 1 tab PO Q4HP PRN #30 tab 04/22/17 Hydralazine HCl [Apresoline 25 mg Tablet] 25 mg PO DAILY #30 tablet 04/22/17 Lisinopril [Zestril] 40 mg PO DAILY #30 tablet 04/22/17 Spironolactone [Aldactone 25 mg Tablet] 25 mg PO DAILY #30 tablet 04/22/17 Topiramate [Topamax 25 mg Tablet] 25 mg PO QHS #30 tablet 04/22/17 Verapamil HCl [Calan 80 mg Tablet] 80 mg PO Q8 #90 tablet 04/22/17 Allergies/Adverse Reactions: morphine [Morphine] Allergy (Intermediate, Verified 04/20/17 22:08) Dyspnea Physical Exam Vital Signs: Temp Pulse Resp BP Pulse Ox 98.3 F 51 L 14 232/116 H 97 04/20/17 16:18 04/20/17 16:18 04/20/17 21:02 04/20/17 21:30 04/20/17 21:02 Results Impressions: Chest X-Ray 04/20/17 17:41 IMPRESSION: NO ACUTE RADIOGRAPHIC FINDING IN THE CHEST. Head CT 04/20/17 17:43 IMPRESSION: NORMAL BRAIN CT WITHOUT CONTRAST. Assessment & Plan - Diagnosis (1) Hypernatremia Is this a current diagnosis for this admission?: Yes (2) Hypertensive urgency Is this a current diagnosis for this admission?: YesPlan: Gradual blood pressure control with as needed hydralazine. We will also continue her current home medications. Vital sign parameters entered into chart. I have strongly encouraged patient to be careful getting out of bed, to avoid a fall with injury. Knee high SCDs for DVT prophylaxis; with patient's young age, and the fact that she will likely be discharged tomorrow, will forego Lovenox or heparin at this time. Impression and plans were discussed with patient and , both of whom concur. Time spent in evaluation and management of patient: 62 minutes. (3) Headache Qualifiers: Headache type: unspecified Headache chronicity pattern: acute headache Intractability: not intractable Qualified Code(s): R51 - Headache Is this a current diagnosis for this admission?: YesPlan: As needed pain medication. (4) DVT prophylaxis Is this a current diagnosis for this admission?: Yes (5) Obesity (BMI 30-39.9) Qualifiers: Obesity type: unspecified obesity type Obesity severity: non-morbid Qualified Code(s): E66.9 - Obesity, unspecified Is this a current diagnosis for this admission?: YesPlan: Dietary consult.
[2017-04-20 22:29] LABS: APPEARANCE,URINE SLIGHTLY-CLOUDY; BILIRUBIN,URINE NEGATIVE (NEGATIVE); GLUCOSE, URINE NEGATIVE (NEGATIVE); KETONES,URINE NEGATIVE (NEGATIVE); LEUKOCYTE ESTERASE,URINE NEGATIVE (NEGATIVE); NITRITE,URINE NEGATIVE (NEGATIVE); PROTEIN,URINE NEGATIVE (NEGATIVE); URINE SPECIFIC GRAVITY 1.015; UROBILINOGEN,URINE NEGATIVE mg/dL (<2.0)
[2017-04-20 22:42] LABS: URINE BARBITURATES SCREEN NEGATIVE; URINE METHADONE SCREEN NEGATIVE; URINE OPIATES LOW NEGATIVE; URINE PHENCYCLIDINE SCREEN NEGATIVE
[2017-04-20 22:44] LABS: ADD ON TESTING BLD IN LAB ACKNOWLEDGE
[2017-04-20 22:57] LABS: MAGNESIUM 1.9 mg/dL (1.6-2.3)
[2017-04-21] MEDS: ACETAMINOPHEN 325 MG TABLET PO PRN ×3 (00:20→12:05)
[2017-04-21] MEDS: OXYCODONE HCL IR 5 MG TABLET PO PRN ×2 (05:08→13:32)
--- NOTE | 2017-04-21 08:48 | EKG REPORT ---
SEVERITY:- ABNORMAL ECG - SINUS RHYTHM PROBABLE LEFT VENTRICULAR HYPERTROPHY : Confirmed by: Ousmane Carranza 21-Apr-2017 08:47:28
[2017-04-21] MEDS: SPIRONOLACTONE 25 MG TABLET PO SCH (09:03)
[2017-04-21] MEDS: LISINOPRIL 10 MG TABLET PO SCH (09:04)
[2017-04-21] MEDS: DOCUSATE SODIUM 100 MG CAPSULE PO SCH ×2 (09:04→17:52)
[2017-04-21] MEDS: HYDRALAZINE HCL 25 MG TABLET PO SCH (09:05)
[2017-04-21] MEDS ORDERED: METOPROLOL TARTRATE 100 MG TABLET PO SCH (10:00)
[2017-04-21] MEDS: VERAPAMIL HCL 80 MG TABLET PO SCH ×2 (13:32→21:23)
--- NOTE | 2017-04-21 13:42 | RADIOLOGY REPORT (SQ) ---
EXAM DESCRIPTION: MRI HEAD COMBO COMPLETED DATE/TIME: 04/21/2017 1:13 pm REASON FOR STUDY: HEADACHE WITH PARESTHESIAS; EVAL FOR MASS COMPARISON: None. TECHNIQUE: Multiplanar imaging includes noncontrasted T1, T2, FLAIR, and Diffusion with ADC map seq uences. Contrast enhanced T1 images. Images stored on PACS. CONTRAST TYPE AND DOSE: 15 mL Multihance. RENAL FUNCTION: GFR > 60. LIMITATIONS: None. FINDINGS: ANATOMY: No anomalies. Normal vascular flow voids. Pituitary fossa normal. CSF SPACES: Normal size and contour. No hemorrhage. CEREBRUM: A few high-signal intensity lesions scattered throughout the white matter on FLAIR imaging with distribution suggesting chronic microvascular ischemic change. Sulci and gyri normal in size and contour. No evidence of hemorrhage, mass or extraaxial fluid collection. No enhancing lesions. POSTERIOR FOSSA: No signal alteration. No hemorrhage. No edema, masses or mass effect. Internal audit ory canals, cerebello-pontine angles, mastoids normal. DIFFUSION: Negative for acute or subacute infarction. ORBITS: No masses. Globes normal. PARANASAL SINUSES: Polyp or retention cyst left maxillary sinus. OTHER: No other significant finding. IMPRESSION: No acute abnormality in the brain. TECHNICAL DOCUMENTATION: JOB ID: [id number] [employer]- All Rights Reserved
[2017-04-21] MEDS ORDERED: PROMETHAZINE HCL INJ 25 MG/1 ML VIAL IV PRN (14:08)
--- NOTE | 2017-04-21 14:20 | PDOC PROGRESS REPORT ---
Subjective Progress Note for:: 04/21/17 Subjective:: reason for visit: acc HTN, JAIME hospital course: per other's notes - "RACHEL SCHOFIELD is a 46 year old female with chronic headaches and chronic poorly controlled hypertension, who presents to the emergency room for evaluation of above complaints. Patient has been discussed with emergency room physician who evaluated the patient. Describes a recurrence of her usual chronic headaches earlier today. States this is usually the case when her blood pressure is higher than it should be. Describes nausea but no vomiting. No chest or abdominal pain, fever or chills. Denies any lateralizing motor weakness. Was seen in the emergency room the of last month for complaints of severe frontal headache. At that time, she had run out of both her Spironolactone and hydralazine, but was still taking her metoprolol and lisinopril. He was given prescriptions for the 2 remaining antihypertensives, and states she has been taking her medications as prescribed. Denies use of alcohol tobacco or illicit drugs. Currently resting quietly, stating her headache is a bit better. Hospitalized on our service the through 25 June of last year discharge diagnoses including malignant hypertension and migraines. At that time, was not completely compliant with all her medications, but states that is no longer the case." I inherited her care Monday morning and she is still c/o intense frontal JAIME described as dull, constant aching pressure across her forehead and radiating into Rt Occiput with associated blurred vision but no paresthesias, n/v, slurred speech, difficulty concentrating, N/T, worse with bright lights and sounds, alleviated only with ibuprofen. ROS: as above, total 10 systems reviewed remaining systems negative Physical Exam Vital Signs: Temp Pulse Resp BP Pulse Ox 97.7 F 51 L 20 177/97 H 98 04/21/17 11:19 04/21/17 11:19 04/21/17 11:19 04/21/17 11:19 04/21/17 11:19 Intake & Output 04/20/17 04/21/17 04/22/17 06:59 06:59 06:59 Intake Total 1137 Output Total 400 Balance -400 1137 Weight 98 kg General appearance: PRESENT: mild distress, obese, well-developed, well- nourished Head exam: PRESENT: atraumatic, normocephalic Eye exam: PRESENT: EOMI, PERRLA. ABSENT: conjunctival injection, nystagmus, scleral icterus Mouth exam: PRESENT: moist, neck supple Neck exam: ABSENT: carotid bruit, tenderness, thyromegaly, tracheal deviation Respiratory exam: PRESENT: clear to auscultation amber. ABSENT: accessory muscle use Cardiovascular exam: PRESENT: bradycardia, RRR. ABSENT: systolic murmur Pulses: PRESENT: normal radial pulses, normal dorsalis pedis pul Vascular exam: PRESENT: normal capillary refill GI/Abdominal exam: PRESENT: normal bowel sounds, soft. ABSENT: tenderness Musculoskeletal exam: PRESENT: ambulatory, full ROM Neurological exam: PRESENT: alert, awake, oriented to person, oriented to place , oriented to time, oriented to situation Psychiatric exam: PRESENT: appropriate affect, normal mood Skin exam: PRESENT: warm. ABSENT: dry Results Laboratory Results: 04/20/17 22:15 Urine Color YELLOW Urine Appearance SLIGHTLY-CLOUDY Urine pH 6.0 Ur Specific [place] 1.015 Urine Protein NEGATIVE Urine Glucose (UA) NEGATIVE Urine Ketones NEGATIVE Urine Blood MODERATE H Urine Nitrite NEGATIVE Ur Leukocyte Esterase NEGATIVE Urine WBC (Auto) 1 Urine RBC (Auto) 1 04/20/17 22:02 Troponin I < 0.012 Impressions: Chest X-Ray 04/20/17 17:41 IMPRESSION: NO ACUTE RADIOGRAPHIC FINDING IN THE CHEST. Head CT 04/20/17 17:43 IMPRESSION: NORMAL BRAIN CT WITHOUT CONTRAST. Head MRI 04/21/17 00:00 IMPRESSION: No acute abnormality in the brain. Status: Imported from PACS Assessment & Plan - Diagnosis (1) Accelerated hypertension Is this a current diagnosis for this admission?: YesPlan: will d/c beta erica and replace with verapamil hoping to treat both the BP and JAIME. o/w continue current multidrug regimen and titrate to effect (2) Migraine Qualifiers: Migraine type: without aura Status migrainosus presence: without status migrainosus Intractability: intractable Qualified Code(s): G43.019 - Migraine without aura, intractable, without status migrainosus Is this a current diagnosis for this admission?: YesPlan: worse; many characteristics of common migraine, add verapamil, topamax, toradol and phenergan and monitor for effect (3) Obese Qualifiers: Obesity type: unspecified obesity type Obesity severity: morbid Qualified Code(s): E66.01 - Morbid (severe) obesity due to excess calories Is this a current diagnosis for this admission?: YesPlan: weight loss would clearly help both her JAIME and her BP. - Time Time Spent with patient: 25-34 minutes Medications reviewed and adjusted accordingly: Yes Anticipated discharge: Home Within: within 24 hours - Plan Summary Plan Summary: if unable to control her BP ,may need eval for pheochromocytoma, primary aldosteronism, hypercortisol, etc. as outpt
[2017-04-21] MEDS: KETOROLAC TROMETHAMINE INJ/PF 30 MG/1 ML SDV IV PRN (15:20)
[2017-04-21] MEDS ORDERED: TOPIRAMATE 25 MG TABLET PO SCH (22:00)
[2017-04-22] MEDS: VERAPAMIL HCL 80 MG TABLET PO SCH (05:05)
[2017-04-22] MEDS: OXYCODONE HCL IR 5 MG TABLET PO PRN (08:03)
[2017-04-22] MEDS: KETOROLAC TROMETHAMINE INJ/PF 30 MG/1 ML SDV IV PRN (08:04)
[2017-04-22] MEDS ORDERED: DEXAMETHASONE SOD PHOS INJ 10 MG/1 ML VIAL IV ONE (10:28)
[2017-04-22] MEDS ORDERED: BUTALB/ACETAMINOPHEN/CAFFEINE 1 TAB EACH PO ONE (10:28)
[2017-04-22] MEDS: SPIRONOLACTONE 25 MG TABLET PO SCH (10:42)
[2017-04-22] MEDS: HYDRALAZINE HCL 25 MG TABLET PO SCH (10:43)
[2017-04-22] MEDS: LISINOPRIL 10 MG TABLET PO SCH (10:43)
[2017-04-22] MEDS: DOCUSATE SODIUM 100 MG CAPSULE PO SCH (10:43)
[2017-04-22 12:27] VITALS: BP 174/106
--- NOTE | 2017-04-22 14:28 | PDOC DISCHARGE SUMMARY ---
General - Admit/Disc Date/PCP Admission Date/Primary Care Provider: 04/20/17 21:59 Discharge Date: 04/22/17 - Discharge Diagnosis (1) Accelerated hypertension Is this a current diagnosis for this admission?: YesSummary: much improved on current regimen, continue same, ck BPs at home and f/u PCP of choice in 1-2 wks for further titration (2) Migraine Is this a current diagnosis for this admission?: YesSummary: add fioricet and continue verapamil and topamax; f/u with PCP in 1-2 wks (3) Obese Is this a current diagnosis for this admission?: Yes - Additional Information Resuscitation Status: Full Code Discharge Diet: Cardiac Discharge Activity: Activity As Tolerated, Balance Activity w/Rest Home Medications: Ibuprofen [Motrin 400 mg Tablet] 400 mg PO Q12HP PRN 04/21/17 Amoxicillin 1 tab PO TID #30 tab 04/22/17 Butalb/Acetaminophen/Caffeine [Fioricet (50-325-40 mg) Tablet] 1 tab PO Q4HP PRN #30 tab 04/22/17 Hydralazine HCl [Apresoline 25 mg Tablet] 25 mg PO DAILY #30 tablet 04/22/17 Lisinopril [Zestril] 40 mg PO DAILY #30 tablet 04/22/17 Spironolactone [Aldactone 25 mg Tablet] 25 mg PO DAILY #30 tablet 04/22/17 Topiramate [Topamax 25 mg Tablet] 25 mg PO QHS #30 tablet 04/22/17 Verapamil HCl [Calan 80 mg Tablet] 80 mg PO Q8 #90 tablet 04/22/17 History of Present Illness Patient complains of: JAIME History of Present Illness: RACHEL SCHOFIELD is a 46 year old female with chronic headaches and chronic poorly controlled hypertension, who presents to the emergency room for evaluation of above complaints. Patient has been discussed with emergency room physician who evaluated the patient. Hospital Course Hospital Course: Describes a recurrence of her usual chronic headaches earlier today. States this is usually the case when her blood pressure is higher than it should be. Describes nausea but no vomiting. No chest or abdominal pain, fever or chills. Denies any lateralizing motor weakness. Was seen in the emergency room the of last month for complaints of severe frontal headache. At that time, she had run out of both her Spironolactone and hydralazine, but was still taking her metoprolol and lisinopril. He was given prescriptions for the 2 remaining antihypertensives, and states she has been taking her medications as prescribed. Denies use of alcohol tobacco or illicit drugs. Currently resting quietly, stating her headache is a bit better. Hospitalized on our service the through 25 June of last year discharge diagnoses including malignant hypertension and migraines. At that time, was not completely compliant with all her medications, but states that is no longer the case." I inherited her care Monday morning and she is still c/o intense frontal JAIME described as dull, constant aching pressure across her forehead and radiating into Rt Occiput with associated blurred vision but no paresthesias, n/v, slurred speech, difficulty concentrating, N/T, worse with bright lights and sounds, alleviated only with ibuprofen. she was treated with toradol, decadron, phenergan, opiates, topamax and change in her home regimen from betablocker to verapamil with good improvement in her JAIME and marked improvement in her BPs. she reports multiple financial and social stressors contributing to her BP and JAIME, reports "bad teeth" and need to f/u with dentist but unable at this time due to finances and in fact has lower molar abscessed tooth I will treat with 10d course of amoxil and she needs to f/u with dentist of her choice. she has improved enough to complete her workup and treatment as a outpt, she is stable for d/c home at this time. she expresses no concerns to me about going home at this tie. Physical Exam Vital Signs: Temp Pulse Resp BP Pulse Ox 98.0 F 64 16 174/106 H 100 04/22/17 12:24 04/22/17 12:24 04/22/17 12:24 04/22/17 12:24 04/22/17 12:24 Intake & Output 04/21/17 04/22/17 04/23/17 06:59 06:59 06:59 Intake Total 1747 Output Total 400 Balance -400 1747 Weight 98 kg 97.4 kg General appearance: PRESENT: no acute distress, morbidly obese, well-developed, well-nourished Head exam: PRESENT: atraumatic, normocephalic Eye exam: PRESENT: EOMI, PERRLA. ABSENT: conjunctival injection, scleral icterus Mouth exam: PRESENT: moist, neck supple Teeth exam: PRESENT: dental caries, poor dentation Throat exam: ABSENT: tonsillar erythema, tonsillar exudate Neck exam: PRESENT: full ROM. ABSENT: carotid bruit, tenderness, thyromegaly Respiratory exam: PRESENT: clear to auscultation amber. ABSENT: accessory muscle use Cardiovascular exam: PRESENT: RRR. ABSENT: systolic murmur GI/Abdominal exam: PRESENT: normal bowel sounds, soft. ABSENT: tenderness Neurological exam: PRESENT: alert, awake, oriented to person, oriented to place , oriented to time, oriented to situation Results Laboratory Results: 04/20/17 22:02 Troponin I < 0.012 Impressions: Chest X-Ray 04/20/17 17:41 IMPRESSION: NO ACUTE RADIOGRAPHIC FINDING IN THE CHEST. Head CT 04/20/17 17:43 IMPRESSION: NORMAL BRAIN CT WITHOUT CONTRAST. Head MRI 04/21/17 00:00 IMPRESSION: No acute abnormality in the brain. Qualifiers PATEINT BEING DISCHARGED WITH ANY OF THE FOLLOWING DIAGNOSIS?: No VTE patient discharged on overlapping Therapy?: No Reason(s) for not prescribing Overlap Therapy:: Not indicated Plan Discharge Plan: d/c home on neew regimen Time Spent: Greater than 30 Minutes
== END 2017-04-22 13:22 | disposition home or self-care (01) ==
LOC: ER 15:57 → EH 20:31 → UNDOADMIN 20:31 → INTOOBSV 21:59 → EH 21:59 → 3W 22:26
PROVIDERS: ADMIT Family Medicine; ATTEND Family Medicine
DX: I10 Essential (primary) hypertension (principal); G43.019 Migraine without aura, intractable, without status migrainosus; E66.9 Obesity, unspecified; K04.7 Periapical abscess without sinus; E87.0 Hyperosmolality and hypernatremia; F41.9 Anxiety disorder, unspecified; Z79.899 Other long term (current) drug therapy; Z90.49 Acquired absence of other specified parts of digestive tract; Z98.51 Tubal ligation status; Z82.49 Family history of ischemic heart disease and other diseases of the circulatory system; Z83.79 Family history of other diseases of the digestive system
CPT/HCPCS: 93005; 99291; 36415; 82553; 82550; 84702; 83735; 85025; 80053; 81001; 84484; 80307; 70553; 71010; 70450; 93010; A9577; J3490 ×6; J0360; J1885 ×2; J1100; G0378

== ENCOUNTER → 2017-12-28 | Outpatient (CLI) | payer OTHER ==
--- NOTE | 2017-12-28 13:31 | WOMENS IMAGING REPORT ---
EXAM DESCRIPTION: BILAT SCREENING MAMMO W/CAD COMPLETED DATE/TIME: 12/28/2017 11:09 am REASON FOR STUDY: ROUTINE SCREENING; Z12.31 Z12.31 ENCNTR SCREEN MAMMOGRAM FOR MALIGNANT NEOPLASM O F TRISTAIN COMPARISON: None. TECHNIQUE: Standard craniocaudal and mediolateral oblique views of each breast recorded using LoHariaa l acquisition. LIMITATIONS: None. FINDINGS: No masses, calcifications or architectural distortion. No areas of suspicion. Read with the assistance of CAD. .[facility] - R2 Cenova Version 1.3 .[facility] - R2 Cenova Version 1.3 .[facility] - R2 Cenova Version 2.4 .[facility] - R2 Cenova Version 2.4 .[facility] - R2 Railway Track Worker Version 9.2 IMPRESSION: NORMAL MAMMOGRAM. BIRADS 1. BREAST DENSITY: b. There are scattered areas of fibroglandular density. BIRAD: 1 NEGATIVE RECOMMENDATION: ROUTINE SCREENING COMMENT: The patient has been notified of the results by letter per SA requirements. Additional no tification policies are in place for contacting patient with suspicious or incomplete findings. Quality ID #[id number]: The [employer] recommends an annual screening mammogram for women aged 40 years or over. This facility utilizes a reminder system to ensure that all patients receive reminder letters, and/or direct phone calls for appointments. This includes reminders for routine scr eening mammograms, diagnostic mammograms, or other Breast Imaging Interventions when appropriate. Th is patient will be placed in the appropriate reminder system. The [employer] (ACR) has developed recommendations for screening MRI of the breast s in certain patient populations, to be used in conjunction with mammography. Breast MRI surveillanc e may be appropriate for women with more than 20% lifetime risk of developing breast cancer as deter mined by genetic testing, significant family history of the disease, or history of mantle radiation f or Hodgkins Disease. ACR Practice Guidelines 2008. TECHNICAL DOCUMENTATION: FINDING NUMBER: (1) ASSESSMENT: (1) JOB ID: [id number] [email or web address]- All Rights Reserved
== END ==
LOC: WI 10:21
DX: Z12.31 Encounter for screening mammogram for malignant neoplasm of breast (principal); M13.80 Other specified arthritis, unspecified site
CPT/HCPCS: 77067

== ENCOUNTER → 2018-01-17 | Outpatient (CLI) | payer OTHER ==
[2018-01-19 08:07] LABS: CYCLIC CITRUL PEPTIDE IGG/A AB 3 units (0-19)
== END ==
LOC: CCC 10:23
DX: M13.80 Other specified arthritis, unspecified site (principal)
CPT/HCPCS: 36415; 85652; 86038; 86200; 86430

== ENCOUNTER 2018-04-20 12:37 | Emergency (ER) | payer SELFPAY ==
[2018-04-20] MEDS ORDERED: NITROGLYCERIN 0.4 MG/TAB 25 TAB/BOTTLE SL PRN (12:58)
--- NOTE | 2018-04-20 12:58 | ER Document Report ---
ED Medical Screen (RME) - General Chief Complaint: Chest Pain > 30 Stated Complaint: BLOOD PRESSURE ISSUE Time Seen by Provider: 04/20/18 12:46 Mode of Arrival: Ambulatory Information source: Patient Notes: 47-year-old female history of hypertension on 4 different blood pressure medications presents with complaints of high blood pressure chest tightness sensation headache. Patient notes she has been taking her blood pressure medication as prescribed states her blood pressure only goes up when she gets sick believes she may have a sinus infection I have greeted and performed a rapid initial assessment of this patient. A comprehensive ED assessment and evaluation of the patient, analysis of test results and completion of the medical decision making process will be conducted by additional ED providers. PHYSICAL EXAMINATION: GENERAL: Well-appearing, well-nourished and in no acute distress. Patient is hypertensive HEAD: Atraumatic, normocephalic. EYES: Pupils equal round extraocular movements intact, conjunctiva are normal. ENT: Nares patent NECK: Normal range of motion LUNGS: No respiratory distress Musculoskeletal: Normal range of motion NEUROLOGICAL: Normal speech, normal gait. PSYCH: Normal mood, normal affect. SKIN: Warm, Dry, normal turgor, no rashes or lesions noted. TRAVEL OUTSIDE OF THE [place] IN LAST 30 DAYS: No - Related Data Allergies/Adverse Reactions: morphine [Morphine] Allergy (Intermediate, Verified 04/20/17 22:08) Dyspnea Past Medical History - Past Medical History Cardiac Medical History: Reports: Hx Hypertension Denies: Hx Congestive Heart Failure, Hx DVT, Hx Heart Attack, Hx Hypercholesterolemia, Hx Pulmonary Embolism Pulmonary Medical History: Reports: Hx Bronchitis Denies: Hx Asthma, Hx COPD, Hx Sleep Apnea Neurological Medical History: Reports: Hx Migraine. Denies: Hx Seizures Endocrine Medical History: Denies: Hx Diabetes Mellitus Type 1, Hx Diabetes Mellitus Type 2, Hx Hyperthyroidism, Hx Hypothyroidism Renal/ Medical History: Denies: Hx Peritoneal Dialysis GI Medical History: Denies: Hx Cirrhosis, Hx Gastroesophageal Reflux Disease, Hx Hepatitis Psychiatric Medical History: Denies: Hx Depression Infectious Medical History: Denies: Hx C-Diff, Hx Hepatitis, Hx MRSA Past Surgical History: Reports: Hx Section, Hx Cholecystectomy, Hx Tubal Ligation - Immunizations Hx Diphtheria, Pertussis, Tetanus Vaccination: Yes Physical Exam - Vital signs Vitals: Temp Pulse Resp BP Pulse Ox 98.1 F 73 16 190/113 H 100 04/20/18 12:46 04/20/18 12:46 04/20/18 12:46 04/20/18 12:46 04/20/18 12:46 Course - Vital Signs Vital signs: Temp Pulse Resp BP Pulse Ox 98.1 F 73 16 190/113 H 100 04/20/18 12:46 04/20/18 12:46 04/20/18 12:46 04/20/18 12:46 04/20/18 12:46 Doctor's Discharge - Discharge Referrals: [facility] [Primary Care Provider] - Follow up as needed
[2018-04-20] MEDS ORDERED: ASPIRIN 81 MG TABLET, CHEWABLE PO ONE (13:11)
[2018-04-20 13:28] LABS: ABSOLUTE BASOPHILS # (AUTO) 0.1 10^3/uL (0.0-0.2); ABSOLUTE EOSINOPHILS # (AUTO) 0.1 10^3/uL (0.0-0.6); ABSOLUTE LYMPHOCYTES (AUTO) 2.5 10^3/uL (0.5-4.7); ABSOLUTE MONOCYTES (AUTO) 0.5 10^3/uL (0.1-1.4); BASOPHILS % (AUTO) 1.3 % (0-2); EOSINOPHILS % (AUTO) 1.4 % (0-6); HEMATOCRIT 36.6 % (36.0-47.0); HEMOGLOBIN 12.3 g/dL (12.0-15.5); LYMPHOCYTES % (AUTO) 34.5 % (13-45); MEAN CORPUSCULAR HEMOGLOBIN 27.5 pg (27.0-33.4); MEAN CORPUSCULAR HGB CONC 33.7 g/dL (32.0-36.0); MEAN CORPUSCULAR VOLUME 82 fl (80-97); MONOCYTES % (AUTO) 6.8 % (3-13); PLATELET COUNT 300 10^3/uL (150-450); RED BLOOD COUNT 4.48 10^6/uL (3.72-5.28); RED CELL DISTRIBUTION WIDTH 14.5 % (11.5-14.0); TOTAL CELLS COUNTED % (AUTO) 100 %; WHITE BLOOD COUNT 7.1 10^3/uL (4.0-10.5)
[2018-04-20 13:46] LABS: ALANINE AMINOTRANSFERASE 30 U/L (9-52); ALBUMIN 4.1 g/dL (3.5-5.0); ALKALINE PHOSPHATASE 61 U/L (38-126); ANION GAP 12 (5-19); ASPARTATE AMINO TRANSFERASE 19 U/L (14-36); BILIRUBIN,DIRECT 0.3 mg/dL (0.0-0.4); BILIRUBIN,TOTAL 0.3 mg/dL (0.2-1.3); BLOOD UREA NITROGEN 16 mg/dL (7-20); CALCIUM 9.8 mg/dL (8.4-10.2); CARBON DIOXIDE 25 mmol/L (22-30); CHLORIDE 107 mmol/L (98-107); CREATINE KINASE 92 U/L (30-135); GLUCOSE 105 mg/dL (75-110); POTASSIUM 4.2 mmol/L (3.6-5.0); SODIUM 143.8 mmol/L (137-145); TOTAL PROTEIN 7.7 g/dL (6.3-8.2)
[2018-04-20] MEDS ORDERED: PROCHLORPERAZINE EDISYLATE INJ 10 MG/2 ML VIAL IV ONE (13:51)
[2018-04-20] MEDS ORDERED: DIPHENHYDRAMINE HCL 50 MG/ML VIAL IV ONE (13:51)
[2018-04-20 13:58] LABS: CREATINE KINASE MB 0.78 ng/mL (<4.55)
[2018-04-20 13:59] LABS: TROPONIN I < 0.012 ng/mL
--- NOTE | 2018-04-20 14:25 | RADIOLOGY REPORT (SQ) ---
EXAM DESCRIPTION: CHEST SINGLE VIEW COMPLETED DATE/TIME: 04/20/2018 2:12 pm REASON FOR STUDY: chest tightness COMPARISON: None. EXAM PARAMETERS: NUMBER OF VIEWS: One view. TECHNIQUE: Single frontal radiographic view of the chest acquired. RADIATION DOSE: NA LIMITATIONS: None. FINDINGS: LUNGS AND PLEURA: No opacities, masses or pneumothorax. No pleural effusion. MEDIASTINUM AND HILAR STRUCTURES: No masses. Contour normal. HEART AND VASCULAR STRUCTURES: Heart normal in size. Normal vasculature. BONES: No acute findings. HARDWARE: None in the chest. OTHER: No other significant finding. IMPRESSION: NO ACUTE RADIOGRAPHIC FINDING IN THE CHEST. TECHNICAL DOCUMENTATION: JOB ID: [id number] [employer]- All Rights Reserved Reading location - IP/workstation name: [email or web address]
--- NOTE | 2018-04-20 14:26 | ER Document Report ---
ED General - General Chief Complaint: Chest Pain > 30 Stated Complaint: BLOOD PRESSURE ISSUE Time Seen by Provider: 04/20/18 12:46 Mode of Arrival: Ambulatory Notes: 47-year-old female patient to the emergency department with chief complaint of headache, hypertension and generally not feeling well for approximately 3 weeks. States that she thinks she has a sinus infection. Has had intermittent fevers, facial pain located behind her eyes. Checked her blood pressure this morning because her headache was worse and noted that her blood pressure was 220 /100. Decided she should come in and get checked out. Denies if this is the worst headache of her life. Nothing seems to make it better or worse. No blurred vision, no double vision, no neck stiffness. Patient apparently complained of some tightness in her chest at triage and so was given nitroglycerin and aspirin. TRAVEL OUTSIDE OF THE [place] IN LAST 30 DAYS: No - HPI Onset: Last week Onset/Duration: Gradual, Worse Quality of pain: Achy Severity: Moderate Pain Level: 3 Associated symptoms: Headache, Nausea - Related Data Allergies/Adverse Reactions: morphine [Morphine] Allergy (Intermediate, Verified 04/20/17 22:08) Dyspnea Past Medical History - General Information source: Patient - Social History Smoking Status: Never Smoker Chew tobacco use (# tins/day): No Frequency of alcohol use: None Drug Abuse: None Lives with: Family Family History: DM, Hypertension Patient has suicidal ideation: No Patient has homicidal ideation: No - Past Medical History Cardiac Medical History: Reports: Hx Hypertension Denies: Hx Congestive Heart Failure, Hx DVT, Hx Heart Attack, Hx Hypercholesterolemia, Hx Pulmonary Embolism Pulmonary Medical History: Reports: Hx Bronchitis Denies: Hx Asthma, Hx COPD, Hx Sleep Apnea Neurological Medical History: Reports: Hx Migraine. Denies: Hx Seizures Endocrine Medical History: Denies: Hx Diabetes Mellitus Type 1, Hx Diabetes Mellitus Type 2, Hx Hyperthyroidism, Hx Hypothyroidism Renal/ Medical History: Denies: Hx Peritoneal Dialysis GI Medical History: Denies: Hx Cirrhosis, Hx Gastroesophageal Reflux Disease, Hx Hepatitis Psychiatric Medical History: Denies: Hx Depression Infectious Medical History: Denies: Hx C-Diff, Hx Hepatitis, Hx MRSA Past Surgical History: Reports: Hx Section, Hx Cholecystectomy, Hx Tubal Ligation - Immunizations Hx Diphtheria, Pertussis, Tetanus Vaccination: Yes Review of Systems - Review of Systems Constitutional: No symptoms reported EENT: Sinus pressure. denies: Eye pain, Eye discharge, Blurred vision, Double vision Cardiovascular: No symptoms reported, Palpitations, Other. denies: Chest pain, Heart racing Respiratory: No symptoms reported Gastrointestinal: No symptoms reported Genitourinary: No symptoms reported Female Genitourinary: No symptoms reported Musculoskeletal: No symptoms reported Skin: No symptoms reported Hematologic/Lymphatic: No symptoms reported Neurological/Psychological: Headaches. denies: Weakness, Paralysis, Seizure Physical Exam - Vital signs Vitals: Temp Pulse Resp BP Pulse Ox 98.1 F 73 16 190/113 H 100 04/20/18 12:46 04/20/18 12:46 04/20/18 12:46 04/20/18 12:46 04/20/18 12:46 Course - Re-evaluation Re-evalutation: 04/20/18 15:22 Patient's headache is virtually gone at this time. Blood pressure is back to normal. No concern at this time in my opinion of subarachnoid hemorrhage. Afebrile and normal WBC count so very low potential for meningitis or encephalitis. Patient has had multiple evaluations in the past including LP for headaches as well as CT scans and MRIs were unremarkable. This is very similar to her previous headaches. Patient states that she would like to go home. I am actually comfortable with this plan at this time. I have given her strict instructions regarding low carbohydrate diet which will help to decrease her insulin level and hopefully help to lower her blood pressure. She has all of the medications for which she need. Will discharge at this time. 04/20/18 15:24 - Vital Signs Vital signs: Temp Pulse Resp BP Pulse Ox 98.1 F 73 14 151/96 H 97 04/20/18 12:46 04/20/18 12:46 04/20/18 13:35 04/20/18 13:35 04/20/18 13:35 - Laboratory Result Diagrams: 04/20/18 13:08 04/20/18 13:08 Laboratory results interpreted by me: 04/20/18 13:08 RDW 14.5 H Discharge - Discharge Clinical Impression: Chronic headache Qualifiers: Headache type: unspecified Intractability: not intractable Qualified Code(s): R51 - Headache Hypertension Qualifiers: Hypertension type: unspecified Qualified Code(s): I10 - Essential (primary) hypertension Condition: Good Disposition: HOME, SELF-CARE Instructions: High Blood Pressure ([facility]), Headache ([facility]) Additional Instructions: Please follow-up with your regular doctor soon as possible for repeat blood pressure check. Continue all of your current medications. In the event that she begin to develop worsening headache, blood pressure is going up, altered mental status, a neurological symptoms or any concerns please return immediately. Forms: Return to Work Referrals: [facility] [NO LOCAL MD] - Follow up in 3-5 days
--- NOTE | 2018-04-20 14:39 | RADIOLOGY REPORT (SQ) ---
EXAM DESCRIPTION: CT HEAD WITHOUT COMPLETED DATE/TIME: 04/20/2018 2:08 pm REASON FOR STUDY: facial/sinus pressure and headache with vertigo COMPARISON: CT brain 04/20/2017, 03/14/2015 TECHNIQUE: Axial images acquired through the brain without intravenous contrast. Images reviewed wi th bone, brain and subdural windows. Additional sagittal and coronal reconstructions were generated. Images stored on PACS. All CT scanners at this facility use dose modulation, iterative reconstruction, and/or weight based d osing when appropriate to reduce radiation dose to as low as reasonably achievable (ALARA). [facility]: Dose Right [facility]: CareDose [facility]: Dose Right [facility]: Teradose 4D [facility]: [employer] RADIATION DOSE: CT Rad equipment meets quality standard of care and radiation dose reduction techniq ues were employed. CTDIvol: 53.2 mGy. DLP: 1124 mGy-cm. mGy. LIMITATIONS: None. FINDINGS: VENTRICLES: Normal size and contour. CEREBRUM: No masses. No hemorrhage. No midline shift. No evidence for acute infarction. Normal gra y/white matter differentiation. No areas of low density in the white matter. CEREBELLUM: No masses. No hemorrhage. No alteration of density. No evidence for acute infarction. EXTRAAXIAL SPACES: No fluid collections. No masses. ORBITS AND GLOBE: No intra- or extraconal masses. Normal contour of globe without masses. CALVARIUM: No fracture. PARANASAL SINUSES: No air-fluid levels worrisome for acute sinusitis. Mucus or serous retention cyst in the floor left maxillary sinus, similar compared to previous studies. Mastoid air cells are dc r. SOFT TISSUES: No mass or hematoma. OTHER: No other significant finding. IMPRESSION: NORMAL BRAIN CT WITHOUT CONTRAST. EVIDENCE OF ACUTE STROKE: NO. COMMENT: Quality ID # [id number]: Final reports with documentation of one or more dose reduction techniques (e.g., Automated exposure control, adjustment of the mA and/or kV according to patient size, use of iterative reconstruction technique) TECHNICAL DOCUMENTATION: JOB ID: [id number] [employer]- All Rights Reserved Reading location - IP/workstation name: [email or web address]
[2018-04-20] MEDS ORDERED: KETOROLAC TROMETHAMINE INJ/PF 30 MG/1 ML SDV IV ONE (14:47)
[2018-04-20 15:01] LABS: APPEARANCE,URINE CLEAR; BILIRUBIN,URINE NEGATIVE (NEGATIVE); COLOR,URINE STRAW; GLUCOSE, URINE NEGATIVE (NEGATIVE); KETONES,URINE NEGATIVE (NEGATIVE); LEUKOCYTE ESTERASE,URINE NEGATIVE (NEGATIVE); NITRITE,URINE NEGATIVE (NEGATIVE); PROTEIN,URINE NEGATIVE (NEGATIVE); URINE SPECIFIC GRAVITY 1.005; UROBILINOGEN,URINE NEGATIVE mg/dL (<2.0)
[2018-04-20 15:05] LABS: FREE T4 (FREE THYROXINE) 1.04 ng/dL (0.78-2.19)
[2018-04-20 15:19] LABS: THYROID STIMULATING HORMONE 1.74 uIU/mL (0.47-4.68)
[2018-04-20 15:36] VITALS: BP 124/78
--- NOTE | 2018-04-20 20:51 | EKG REPORT ---
SEVERITY:- BORDERLINE ECG - SINUS RHYTHM LVH BY VOLTAGE : Confirmed by: Ousmane Carranza 20-Apr-2018 20:51:05
== END 2018-04-20 15:36 | disposition home or self-care (01) ==
LOC: ER 12:37
DX: R51 Headache (principal); I10 Essential (primary) hypertension; R07.9 Chest pain, unspecified; R50.9 Fever, unspecified
CPT/HCPCS: 93005; 99285; 96374; 96375; 36415; 84439; 82553; 82550; 84443; 85025; 80053; 81001; 84484; 71045; 70450; 93010; J1200; J1885; J0780